=== PATIENT | female | born 1985 | race American Indian/Alaskan Native ===

== ENCOUNTER 2019-10-14 10:50 | Emergency (ER) | payer BC, OTHER ==
[~2019-10-14] VITALS: Ht 160 cm; Wt 99.8 kg
== END 2019-10-14 11:50 | disposition home or self-care (01) ==
LOC: ED 10:50
PROC: 0HDRXZZ Extraction of Toe Nail, External Approach (ICD-10-PCS; principal; 2019-10-14)
DX: S91.201A Unspecified open wound of right great toe with damage to nail, initial encounter (principal); W22.8XXA Striking against or struck by other objects, initial encounter; Z91.040 Latex allergy status
CPT/HCPCS: 11730; 99283-25